=== PATIENT | male | born 1980 | race Caucasian/White ===

== ENCOUNTER 2016-09-05 11:28 | Emergency (ER) | payer BC, OTHER ==
[2016-09-05 11:32] VITALS: RESP 16
--- NOTE | 2016-09-05 12:22 | ED ---
General Adult HPI - General Chief complaint: Recheck/Abnormal Lab/Rx Stated complaint: HAIR LOSS Time Seen by Provider: 09/05/16 12:07 Source: patient Mode of arrival: ambulatory Limitations: no limitations - History of Present Illness Initial comments: This 36-year-old white male presents with a complaint of hair loss. He states that patches of his hair seemed to be falling out. This started 2 days ago. Seems to only be on the left side of his scalp. He denies any previous similar incidents. He denies any exposure to chemicals. He denies any changes in his lifestyle otherwise. No other complaints or modifying factors. There is no pain associated with this. - Related Data Previous Rx's Medication Instructions Recorded Triamcinolone 0.5% Cream [Kenalog 1 applic TOPICAL BID #30 gm 09/05/16 0.5% Cream] Allergies Allergy/AdvReac Type Severity Reaction Status Date / Time No Known Allergies Allergy Verified 09/05/16 11:41 Review of Systems ROS Statement: Those systems with pertinent positive or pertinent negative responses have been documented in the HPI. ROS Other: All systems not noted in ROS Statement are negative. Past Medical History Additional Past Medical History / Comment(s): chronic abd and back pain-unknown diagnosis, elevated lipase History of Any Multi-Drug Resistant Organisms: None Reported Past Surgical History: Orthopedic Surgery Past Psychological History: No Psychological Hx Reported Smoking Status: Current every day smoker Past Alcohol Use History: None Reported Past Drug Use History: Marijuana General Exam Limitations: no limitations General appearance: alert, in no apparent distress Head exam: Present: atraumatic, normocephalic, other (There are several patches of hair loss noted on the left scalp. There is no associated scaling erythema or rash.) Psychiatric exam: Present: normal affect, normal mood Skin exam: Present: intact. Absent: rash Course Vital Signs 09/05/16 11:30 Temperature 98.2 F Pulse Rate 59 L Respiratory 16 Rate Blood Pressure 136/81 O2 Sat by Pulse 99 Oximetry Medical Decision Making - Medical Decision Making The patient was seen and examined. It appears that he has alopecia. It is felt as though he would primarily benefit from following up with a airplane technician. We will attempt some topical corticosteroids. He also may benefit from some minoxidil. It is felt as though he stable for discharge and leaves in no distress. Disposition Clinical Impression: Alopecia areata Disposition: HOME SELF-CARE Condition: Good Additional Instructions: We saw you for alopecia areata. Please use the topical triamcinolone cream as prescribed. He also may benefit from using some minoxidil and following up with a airplane technician. Prescriptions: Triamcinolone 0.5% Cream [Kenalog 0.5% Cream] 1 applic TOPICAL BID #30 gm Referrals: Oralia Moyer MD [Primary Care Provider] - 1-2 days Karl Alejo MD [STAFF PHYSICIAN] - 1-2 days Time of Disposition: 12:20
[2016-09-05 12:50] VITALS: BP 133/93; PULSE 72; TEMP 97.1
== END 2016-09-05 12:53 | disposition home or self-care (01) ==
LOC: EC 11:28
DX: L63.9 Alopecia areata, unspecified (principal); F17.200 Nicotine dependence, unspecified, uncomplicated
CPT/HCPCS: 99282

== ENCOUNTER 2020-02-06 16:17 | Observation (INO) | payer OTHER ==
[2020-02-06] MEDS ORDERED: MORPHINE SULFATE 4 MG/ML SYRINGE IV STA (16:43)
[2020-02-06] MEDS ORDERED: SODIUM CHLORIDE 0.9% 1,000 ML IV STA ×2 (16:43)
[2020-02-06] MEDS ORDERED: PANTOPRAZOLE 40 MG/10 ML VIAL IVP STA (16:43)
[2020-02-06] MEDS ORDERED: ONDANSETRON 4 MG/2 ML VIAL IVP STA (16:43)
--- NOTE | 2020-02-06 17:12 | ED ---
Abdominal Pain HPI - General Chief Complaint: Abdominal Pain Stated Complaint: pancreatitis Time Seen by Provider: 02/06/20 16:27 Source: patient, RN notes reviewed, old records reviewed Mode of arrival: ambulatory Limitations: no limitations - History of Present Illness Initial Comments: is a 39-year-old male who presents emergency department today for evaluation for complaints of upper abdominal pain. He reports the abdominal pains more severe for the past 3 days. He states he's been diagnosed with pancreatitis many years ago and states that he seems to manage flareups at home by drink plenty fluids and healthy diet. Patient states that he has not sought medical treatment for the similar symptoms for years. Patient states the pain is in the left upper quadrant radiating towards his back. He denies alcohol use. He reports that he has followed with the [facility] when he was first diagnosed with chronic pancreatitis. Patient states that he has been having some diarrhea, nausea vomiting. He reports that he was having a bowel movement with diarrhea he also had an episode of near syncope. Denies chest pain, shortness of breath. - Related Data Previous Rx's Medication Instructions Recorded Triamcinolone 0.5% Cream [Kenalog 1 applic TOPICAL BID #30 gm 09/05/16 0.5% Cream] Allergies Allergy/AdvReac Type Severity Reaction Status Date / Time No Known Allergies Allergy Verified 02/06/20 16:25 Review of Systems ROS Statement: Those systems with pertinent positive or pertinent negative responses have been documented in the HPI. ROS Other: All systems not noted in ROS Statement are negative. Past Medical History Past Medical History: No Reported History Additional Past Medical History / Comment(s): chronic abd and back pain-unknown diagnosis, elevated lipase History of Any Multi-Drug Resistant Organisms: None Reported Past Surgical History: Orthopedic Surgery Past Psychological History: No Psychological Hx Reported Smoking Status: Never smoker Past Alcohol Use History: None Reported Past Drug Use History: Marijuana General Exam - General Exam Comments Initial Comments: Alert and oriented 39-year-old male. No significant distress. Limitations: no limitations General appearance: alert, in no apparent distress Head exam: Present: atraumatic, normocephalic, normal inspection Eye exam: Present: normal appearance, PERRL, EOMI. Absent: scleral icterus, conjunctival injection, periorbital swelling ENT exam: Present: normal exam, mucous membranes moist Neck exam: Present: normal inspection. Absent: tenderness, meningismus, lymphadenopathy Respiratory exam: Present: normal lung sounds bilaterally. Absent: respiratory distress, wheezes, rales, rhonchi, stridor Cardiovascular Exam: Present: regular rate, normal rhythm, normal heart sounds. Absent: systolic murmur, diastolic murmur, rubs, gallop, clicks GI/Abdominal exam: Present: soft, tenderness (Left lower left upper quadrant tenderness), normal bowel sounds. Absent: distended, guarding, rebound, rigid Extremities exam: Present: normal inspection, full ROM, normal capillary refill. Absent: tenderness, pedal edema, joint swelling, calf tenderness Back exam: Present: normal inspection Neurological exam: Present: alert, oriented X3, CN II-XII intact Psychiatric exam: Present: normal affect, normal mood Skin exam: Present: warm, dry, intact, normal color. Absent: rash Course Vital Signs 02/06/20 16:21 Temperature 99.0 F Pulse Rate 83 Respiratory 18 Rate Blood Pressure 109/76 O2 Sat by Pulse 98 Oximetry Medical Decision Making - Medical Decision Making 39-year-old male with history of chronic pancreatitis presents with 3 days of flareup of nausea and vomiting and upper abdominal pain. He reports he typical ly manages his pains at home but it was more severe today. Patient states that he also had some near-syncopal episodes due to the pain. At this time patient's labs show evidence of elevated lipase at 1200. This is the highest Patient reports that his his ever been. He denies any alcohol use. Patient will ultrasound of the right upper quadrant gallbladder at this time. I discussed admission for IV hydration and pain management for the Patient and he is agreeable to this. Dr. Rivera disucssed with LIZ Quigley. - Lab Data Result diagrams: 02/06/20 16:44 02/06/20 16:44 Lab Results 02/06/20 02/06/20 02/06/20 Range/Units 16:44 16:44 16:44 WBC 10.0 (3.8-10.6) k/uL RBC 5.59 (4.30-5.90) m/uL Hgb 16.2 (13.0-17.5) gm/dL Hct 47.4 (39.0-53.0) % MCV 84.7 (80.0-100.0) fL MCH 29.0 (25.0-35.0) pg MCHC 34.2 (31.0-37.0) g/dL RDW 12.2 (11.5-15.5) % Plt Count 430 (150-450) k/uL Neutrophils % 81 % Lymphocytes % 13 % Monocytes % 4 % Eosinophils % 1 % Basophils % 1 % Neutrophils # 8.1 H (1.3-7.7) k/uL Lymphocytes # 1.4 (1.0-4.8) k/uL Monocytes # 0.4 (0-1.0) k/uL Eosinophils # 0.1 (0-0.7) k/uL Basophils # 0.1 (0-0.2) k/uL PT 10.5 (9.0-12.0) sec INR 1.0 (<1.2) APTT 24.2 (22.0-30.0) sec Sodium (137-145) mmol/L Potassium (3.5-5.1) mmol/L Chloride (98-107) mmol/L Carbon Dioxide (22-30) mmol/L Anion Gap mmol/L BUN (9-20) mg/dL Creatinine (0.66-1.25) mg/dL Est GFR (CKD-EPI)AfAm (>60 ml/min/1.73 sqM) Est GFR (CKD-EPI)NonAf (>60 ml/min/1.73 sqM) Glucose (74-99) mg/dL Calcium (8.4-10.2) mg/dL Total Bilirubin (0.2-1.3) mg/dL AST (17-59) U/L ALT (4-49) U/L Alkaline Phosphatase (38-126) U/L Total Protein (6.3-8.2) g/dL Albumin (3.5-5.0) g/dL Amylase (30-110) U/L Lipase (23-300) U/L Urine Color Colorless Urine Appearance Clear (Clear) Urine pH 7.0 (5.0-8.0) Ur Specific [place] 1.003 (1.001-1.035) Urine Protein Negative (Negative) Urine Glucose (UA) Negative (Negative) Urine Ketones Negative (Negative) Urine Blood Negative (Negative) Urine Nitrite Negative (Negative) Urine Bilirubin Negative (Negative) Urine Urobilinogen <2.0 (<2.0) mg/dL Ur Leukocyte Esterase Negative (Negative) 02/06/20 Range/Units 16:44 WBC (3.8-10.6) k/uL RBC (4.30-5.90) m/uL Hgb (13.0-17.5) gm/dL Hct (39.0-53.0) % MCV (80.0-100.0) fL MCH (25.0-35.0) pg MCHC (31.0-37.0) g/dL RDW (11.5-15.5) % Plt Count (150-450) k/uL Neutrophils % % Lymphocytes % % Monocytes % % Eosinophils % % Basophils % % Neutrophils # (1.3-7.7) k/uL Lymphocytes # (1.0-4.8) k/uL Monocytes # (0-1.0) k/uL Eosinophils # (0-0.7) k/uL Basophils # (0-0.2) k/uL PT (9.0-12.0) sec INR (<1.2) APTT (22.0-30.0) sec Sodium 136 L (137-145) mmol/L Potassium 4.3 (3.5-5.1) mmol/L Chloride 106 (98-107) mmol/L Carbon Dioxide 21 L (22-30) mmol/L Anion Gap 9 mmol/L BUN 12 (9-20) mg/dL Creatinine 1.07 (0.66-1.25) mg/dL Est GFR (CKD-EPI)AfAm >90 (>60 ml/min/1.73 sqM) Est GFR (CKD-EPI)NonAf 87 (>60 ml/min/1.73 sqM) Glucose 95 (74-99) mg/dL Calcium 9.7 (8.4-10.2) mg/dL Total Bilirubin 0.7 (0.2-1.3) mg/dL AST 26 (17-59) U/L ALT 21 (4-49) U/L Alkaline Phosphatase 49 (38-126) U/L Total Protein 7.4 (6.3-8.2) g/dL Albumin 4.7 (3.5-5.0) g/dL Amylase 248 H (30-110) U/L Lipase 1205 H (23-300) U/L Urine Color Urine Appearance (Clear) Urine pH (5.0-8.0) Ur Specific [place] (1.001-1.035) Urine Protein (Negative) Urine Glucose (UA) (Negative) Urine Ketones (Negative) Urine Blood (Negative) Urine Nitrite (Negative) Urine Bilirubin (Negative) Urine Urobilinogen (<2.0) mg/dL Ur Leukocyte Esterase (Negative) 02/06/20 17:11 EKG shows sinus bradycardia, septal infarct. Abnormal EKG. Ventricular rate of 57 bpm. Verbal 138 ms. QS duration is 84 ms. QT QTc is 398/487 ms. Disposition Clinical Impression: Pancreatitis Disposition: ADMITTED IP TO THIS HOSP Condition: Stable Is patient prescribed a controlled substance at d/c from ED?: No Referrals: Oralia Moyer MD [Primary Care Provider] - 1-2 days Time of Disposition: 17:59
[2020-02-06 17:21] LABS: Basophils # (A) 0.1 k/uL (0-0.2); Basophils % (A) 1 %; Eosinophils # (A) 0.1 k/uL (0-0.7); Eosinophils % (A) 1 %; HCT 47.4 % (39.0-53.0); HGB 16.2 gm/dL (13.0-17.5); Lymphocytes # (A) 1.4 k/uL (1.0-4.8); Lymphocytes % (A) 13 %; MCHC 34.2 g/dL (31.0-37.0); MCV 84.7 fL (80.0-100.0); Mean Platelet Volume 6.4; Monocytes # (A) 0.4 k/uL (0-1.0); Monocytes % (A) 4 %; Neutrophils # (A) 8.1 k/uL (1.3-7.7); Neutrophils % (A) 81 %; Platelet Count 430 k/uL (150-450); RBC 5.59 m/uL (4.30-5.90); RDW 12.2 % (11.5-15.5)
[2020-02-06 17:25] LABS: Appearance,Urine Clear (Clear); Bilirubin,Urine Negative (Negative); Blood,Urine Negative (Negative); Color,Urine Colorless; Glucose,Urine (UA) Negative (Negative); Ketones,Urine Negative (Negative); Leukocyte Esterase,Urine Negative (Negative); Nitrite,Urine Negative (Negative); Protein,Urine Negative (Negative); Specific Gravity,Urine 1.003 (1.001-1.035); Urobilinogen,Urine <2.0 mg/dL (<2.0)
[2020-02-06 17:31] LABS: ALT 21 U/L (4-49); AST 26 U/L (17-59); African American GFR (CKD) >90 (>60 ml/min/1.73 sqM); Albumin 4.7 g/dL (3.5-5.0); Alkaline Phosphatase 49 U/L (38-126); Amylase 248 U/L (30-110); Anion Gap 9 mmol/L; Blood Urea Nitrogen 12 mg/dL (9-20); Calcium 9.7 mg/dL (8.4-10.2); Carbon Dioxide 21 mmol/L (22-30); Chloride 106 mmol/L (98-107); Glucose 95 mg/dL (74-99); Lipase 1205 U/L (23-300); Non-African American GFR(CKD) 87 (>60 ml/min/1.73 sqM); Potassium 4.3 mmol/L (3.5-5.1); Sodium 136 mmol/L (137-145); Total Bilirubin 0.7 mg/dL (0.2-1.3); Total Protein 7.4 g/dL (6.3-8.2)
[2020-02-06 17:38] LABS: Partial Thromboplastin Time 24.2 sec (22.0-30.0); Prothrombin Time 10.5 sec (9.0-12.0)
[2020-02-06] MEDS ORDERED: MORPHINE SULFATE 4 MG/ML SYRINGE IV PRN (17:59)
[2020-02-06] MEDS ORDERED: IBUPROFEN 400 MG TAB PO PRN (17:59)
[2020-02-06] MEDS ORDERED: ACETAMINOPHEN TAB 325 MG TAB PO PRN (17:59)
[2020-02-06] MEDS ORDERED: NALOXONE 0.4 MG/ML 1 ML VIAL IV PRN (17:59)
--- NOTE | 2020-02-06 19:23 | US ---
EXAMINATION TYPE: US gallbladder DATE OF EXAM: 02/06/2020 COMPARISON: US CLINICAL HISTORY: pancreatitis. Pancreatitis. EXAM MEASUREMENTS: Liver Length: 14.8 cm Gallbladder Wall: 0.27 cm CBD: 0.24 cm Right Kidney: 10.6 x 5.1 x 4.2 cm Limited due to gas. Pancreas: Obscured by overlying bowel gas. Liver: Complex, mostly anechoic area seen in the anterior right lobe of the liver measurin.0 x 2 .0 x 2.0 cm. Gallbladder: Very minimal amount of internal echoes seen versus artifact. Evidence for sonographic Ward's sign: No CBD: Appears wnl Right Kidney: Hyperechoic focus seen with posterior shadowing and twinkle artifact measurin.7 x 0.9 x 0.5 cm. IMPRESSION: 1. No acute sonographic process. 2. 7 mm mean diameter nonobstructing right renal calcification.
[2020-02-06] MEDS: SODIUM CHLORIDE 0.9% 1,000 ML IV SCH (21:15)
[2020-02-07] MEDS: KETOROLAC 15 MG/ML 1 ML VIAL IVP PRN ×2 (01:13→08:39)
[2020-02-07] MEDS ORDERED: PANTOPRAZOLE 40 MG/10 ML VIAL IV SCH (09:00)
[2020-02-07] MEDS: SODIUM CHLORIDE 0.9% 1,000 ML IV SCH ×2 (10:07→15:41)
[2020-02-07 10:15] VITALS: BP 122/81; PULSE 59; RESP 17; TEMP 97.8
--- NOTE | 2020-02-07 16:50 | P.HPIM ---
History of Present Illness patient is a very pleasant 39-year-old male with the previous history of pericarditis came in with similar pain in the epigastric area in the right flank area as well.Patient's pain is crampy in nature as well as sharp in nature sign ificantly improved now. Moderate to severe in severity. Patient is found to have elevated lipase because of which patient was believed to have pancreatitis and was subsequently admitted. Patient denied any fever chills was having some nausea patient is found to have 7 mm nonobstructing right renal calculi and a lipase is 1200 patient denied any alcohol abuse there are no gallstones. Review of Systems REVIEW OF SYSTEMS: CONSTITUTIONAL: No fever, no malaise, no fatigue. HEENT: No recent visual problems or hearing problems. Denied any sore throat. CARDIOVASCULAR: No chest pain, orthopnea, PND, no palpitations, no syncope. PULMONARY: No shortness of breath, no cough, no hemoptysis. GASTROINTESTINAL: as mentioned in HPI NEUROLOGICAL: No headaches, no weakness, no numbness. HEMATOLOGICAL: Denies any bleeding or petechiae. GENITOURINARY: Denies any burning micturition, frequency, or urgency. MUSCULOSKELETAL/RHEUMATOLOGICAL: Denies any joint pain, swelling, or any muscle pain. ENDOCRINE: Denies any polyuria or polydipsia. The rest of the 14-point review of systems is negative. Past Medical History Past Medical History: No Reported History Additional Past Medical History / Comment(s): chronic abd and back pain-unknown diagnosis, elevated lipase, chronic pancreatitis History of Any Multi-Drug Resistant Organisms: None Reported Past Surgical History: Orthopedic Surgery Additional Past Surgical History / Comment(s): left wrist surgery Past Psychological History: No Psychological Hx Reported Smoking Status: Former smoker Past Alcohol Use History: None Reported Past Drug Use History: Marijuana - Past Family History Mother History Unknown: Yes Father History Unknown: Yes Medications and Allergies Home Medications Medication Instructions Recorded Confirmed Type No Known Home Medications 02/06/20 02/06/20 History Allergies Allergy/AdvReac Type Severity Reaction Status Date / Time No Known Allergies Allergy Verified 02/06/20 18:34 Physical Exam Vitals: Vital Signs Temp Pulse Pulse Resp BP BP Pulse Ox 02/07/20 10:14 97.8 F 59 L 17 122/81 97 02/07/20 09:08 98.6 F 69 18 136/83 99 10/23/20 06:00 64 18 133/88 98 02/06/20 21:17 81 19 127/94 99 Intake and Output 02/07/20 02/07/20 02/07/20 06:59 14:59 22:59 Other: # Voids 3 PHYSICAL EXAMINATION: GENERAL: The patient is alert and oriented x3, not in any acute distress. Well developed, well nourished. HEENT: Pupils are round and equally reacting to light. EOMI. No scleral icterus. No conjunctival pallor. Normocephalic, atraumatic. No pharyngeal erythema. No thyromegaly. CARDIOVASCULAR: S1 and S2 present. No murmurs, rubs, or gallops. PULMONARY: Chest is clear to auscultation, no wheezing or crackles. ABDOMEN: Soft, nontender, nondistended, normoactive bowel sounds. No palpable organomegaly. MUSCULOSKELETAL: No joint swelling or deformity. EXTREMITIES: No cyanosis, clubbing, or pedal edema. NEUROLOGICAL: Gross neurological examination did not reveal any focal deficits. SKIN: No rashes. Results CBC & Chem 7: 02/06/20 16:44 02/06/20 16:44 Labs: Abnormal Lab Results - Last 24 Hours (Table) 02/06/20 02/06/20 Range/Units 16:44 16:44 Neutrophils # 8.1 H (1.3-7.7) k/uL Sodium 136 L (137-145) mmol/L Carbon Dioxide 21 L (22-30) mmol/L Amylase 248 H (30-110) U/L Lipase 1205 H (23-300) U/L Thrombosis Risk Factor Assmnt - Choose All That Apply Any of the Below Risk Factors Present?: Yes Other Risk Factors: No Other congenital or acquired thrombophilia - If yes, enter type in comment: No Assessment and Plan Plan: -abdominal pain: Most probably secondary to nephrolithiasis although cannot completely exclude pancreatitis possibility of pancreatitis low clinically. Patient will be started on diet and will advance it continue with nonsteroidal anti-inflammatory medications patient wanted to go home later today if patient's is able to tolerate diet, patient will be discharged today. -mild hyponatremia hypervolemic hyponatremia expected to improve with IV fluids -as mentioned above although possibility is low at cannot completely rule out pancreatitis
--- NOTE | 2020-02-07 16:53 | P.DS ---
Providers Date of admission: 02/06/20 20:21 Attending physician: Luís Wills Primary care physician: Oralia Moyer [facility] Course: patient is clinically doing well if he is able to tolerate soft diet for supper patient will be discharged today. Patient Condition at Discharge: Stable Plan - Discharge Summary Discharge Rx Participant: No New Discharge Prescriptions: No Action No Known Home Medications Discharge Medication List No Known Home Medications 02/06/20 [History] Follow up Appointment(s)/Referral(s): Oralia Moyer MD [Primary Care Provider] - 3 Days Discharge Disposition: HOME SELF-CARE
== END 2020-02-07 19:24 | disposition home or self-care (01) ==
LOC: EC 16:17 → INTOOBSV 20:21 → 6NMEDSUR 20:21 → UNDODISIN 02-07 19:24
PROVIDERS: ADMIT Hospitalist; ATTEND Hospitalist
DX: N20.0 Calculus of kidney (principal); K85.90 Acute pancreatitis without necrosis or infection, unspecified; Z87.891 Personal history of nicotine dependence; E87.1 Hypo-osmolality and hyponatremia; E86.1 Hypovolemia; K86.1 Other chronic pancreatitis; E87.70 Fluid overload, unspecified; Z86.19 Personal history of other infectious and parasitic diseases
CPT/HCPCS: 96376; 96361 ×2; 96374; 96375 ×2; 99285; 36415; 93005; 80053; 82150; 83690; 85025; 85610; 85730; 81003; 76705; G0378 ×2; J2270; J2405; J1885; C9113 ×2

== ENCOUNTER 2020-05-31 18:36 | Emergency (ER) | payer OTHER ==
[2020-05-31 18:43] VITALS: BP 105/73; PULSE 60; RESP 16; TEMP 97.9
[2020-05-31] MEDS ORDERED: TOPICAL SKIN ADHESIVE 1 EACH AMP TOPICAL STA (19:11)
--- NOTE | 2020-05-31 20:07 | ED ---
General Adult HPI - General Source: patient, RN notes reviewed Mode of arrival: ambulatory Limitations: no limitations <Linden Guadarrama - Last Filed: 05/31/20 20:09> <Yamilet Arzola - Last Filed: 06/01/20 16:42> - General Chief complaint: Wound/Laceration Stated complaint: cut l index finger Time Seen by Provider: 05/31/20 18:53 - History of Present Illness Initial comments: 39-year-old male presents to the emergency room for chief, and of laceration. Patient was using a knife while cooking today and cut the finger pad of his left first digit. Patient states he thought it would need to be glued. Patient states the knife was clean and he does not believe there are any possible foreign bodies. According to the patient he is up-to-date on tetanus within the past 5 years.Patient has no other complaints at this time including shortness of breath, chest pain, abdominal pain, nausea or vomiting, headache, or visual changes. (Linden Guadarrama) - Related Data Home Medications Medication Instructions Recorded Confirmed No Known Home Medications 02/06/20 02/06/20 Allergies Allergy/AdvReac Type Severity Reaction Status Date / Time No Known Allergies Allergy Verified 05/31/20 18:43 Review of Systems ROS Other: All systems not noted in ROS Statement are negative. <Linden Guadarrama - Last Filed: 05/31/20 20:09> ROS Other: All systems not noted in ROS Statement are negative. <Yamilet Arzola - Last Filed: 06/01/20 16:42> ROS Statement: Those systems with pertinent positive or pertinent negative responses have been documented in the HPI. Past Medical History Past Medical History: No Reported History Additional Past Medical History / Comment(s): chronic abd and back pain-unknown diagnosis, elevated lipase, chronic pancreatitis History of Any Multi-Drug Resistant Organisms: None Reported Past Surgical History: Orthopedic Surgery Additional Past Surgical History / Comment(s): left wrist surgery Past Psychological History: No Psychological Hx Reported Smoking Status: Former smoker Past Alcohol Use History: None Reported Past Drug Use History: Marijuana - Past Family History Mother History Unknown: Yes Father History Unknown: Yes <Linden Guadarrama - Last Filed: 05/31/20 20:09> General Exam Limitations: no limitations General appearance: alert, in no apparent distress Head exam: Present: atraumatic Eye exam: Present: normal appearance, PERRL, EOMI. Absent: scleral icterus, conjunctival injection ENT exam: Present: normal exam, mucous membranes moist Neck exam: Present: normal inspection, full ROM. Absent: tenderness Respiratory exam: Present: normal lung sounds bilaterally. Absent: respiratory distress, wheezes Cardiovascular Exam: Present: regular rate, normal rhythm, normal heart sounds GI/Abdominal exam: Present: soft. Absent: distended, tenderness Extremities exam: Present: full ROM (Full range of motion of the left second digit including extension and flexion of the DIP joint.), normal capillary refill (Capillary refill less than 2 seconds in the left second digit, radial pulse 2+.), other (Patient has a 1 cm superficial laceration noted to the left Second digit finger pad. Bleeding controlled.) <Linden Guadarrama - Last Filed: 05/31/20 20:09> Course Vital Signs 05/31/20 18:40 Temperature 97.9 F Pulse Rate 60 Respiratory 16 Rate Blood Pressure 105/73 O2 Sat by Pulse 98 Oximetry Procedures - Laceration Laceration #1 Consent Obtained: verbal consent Indication: laceration Site: hand Size (cm): 1 Description: linear Depth: simple, single layer Pre-repair: wound explored, irrigated extensively, deep structures intact Type of Sutures: other (exofin) Patient Tolerated Procedure: well, no complications <Linden Guadarrama - Last Filed: 05/31/20 20:09> Medical Decision Making <Linden Guadarrama - Last Filed: 05/31/20 20:09> <Yamilet Arzola - Last Filed: 06/01/20 16:42> - Medical Decision Making Wound was cleaned thoroughly with Sterile water and Betadine. Bleeding is controlled. I did recommend x-ray to rule out any foreign body however patient states there is absolutely no way there is a foreign body and does not want this performed. I did offer glue versus sutures. Patient strongly prefers glue. I did discuss the risks including opening of the wound but he would prefer to go with glue. This was glued with Exofin. I discussed return parameters including ulcer infection. He is up-to-date on tetanus. He will return for any worsening symptoms. (Linden Guadarrama) I was available for consultation in the emergency department. The history and physical exam were done by the midlevel provider. I was consulted for this patients care. I reviewed the case with the midlevel provider and based on their presentation of the patient, I agree with the assessment, medical decision making and plan of care as documented. Chart was dictated using [employer] dictation software. Attempts were made to correct any dictation errors however some typographical errors may persist. Patient was seen during a national state of emergency due to the Covid-19 pandemic. (Yamilet Arzola) Disposition Is patient prescribed a controlled substance at d/c from ED?: No Time of Disposition: 20:05 <Linden Guadarrama - Last Filed: 05/31/20 20:09> <Yamilet Arzola - Last Filed: 06/01/20 16:42> Clinical Impression: Laceration Disposition: HOME SELF-CARE Condition: Good Instructions (If sedation given, give patient instructions): Laceration (ED), Skin Adhesive Care (ED) Additional Instructions: Please try to keep wound as dry and clean as possible. Monitor for signs of infection. Please follow-up with your doctor in one to 2 days. Return to the emergency room for any worsening symptoms.Skin glue should come off on its own. Referrals: Suman Buchanan MD [Primary Care Provider] - 1-2 days
== END 2020-05-31 20:09 | disposition home or self-care (01) ==
LOC: EC 18:36
DX: S61.211A Laceration without foreign body of left index finger without damage to nail, initial encounter (principal); Z87.891 Personal history of nicotine dependence; W26.0XXA Contact with knife, initial encounter; Y93.G3 Activity, cooking and baking
CPT/HCPCS: 12001; 99282

== ENCOUNTER 2021-01-02 11:39 | Emergency (ER) | payer OTHER ==
[2021-01-02 11:58] VITALS: BP 113/74; PULSE 56; RESP 20; TEMP 98.3
[2021-01-02] MEDS ORDERED: TOPICAL SKIN ADHESIVE 1 EACH AMP TOPICAL ONE (13:20)
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
== END 2021-01-02 14:06 | disposition home or self-care (01) ==
LOC: EC 11:39
DX: S81.811A Laceration without foreign body, right lower leg, initial encounter (principal); F17.200 Nicotine dependence, unspecified, uncomplicated; W27.8XXA Contact with other nonpowered hand tool, initial encounter; Y93.89 Activity, other specified; Y92.89 Other specified places as the place of occurrence of the external cause
CPT/HCPCS: 12001; 99282

== ENCOUNTER 2021-01-27 16:23 | Emergency (ER) | payer OTHER ==
--- NOTE | 2021-01-27 19:08 | XR ---
EXAMINATION TYPE: XR forearm RT DATE OF EXAM: 01/27/2021 COMPARISON: NONE HISTORY: Pain TECHNIQUE: 2 views FINDINGS: There is impacted transverse fracture distal radial metaphysis. This is 1 cm from the wrist joint. There is nondisplaced fracture ulnar styloid process. There is no dislocation. Carpal bones a re intact. Elbow joint appears intact. IMPRESSION: Fractures of the distal radius and ulna with overall no significant displacement. Radial fracture is impacted.
--- NOTE | 2021-01-27 19:11 | XR ---
EXAMINATION TYPE: XR wrist limited RT DATE OF EXAM: 01/27/2021 COMPARISON: NONE HISTORY: Pain. Fall TECHNIQUE: 2 views FINDINGS: There is impacted comminuted transverse fracture distal radial metaphysis. There is no sign ificant displacement. Fracture is 12 mm from the wrist joint. There is nondisplaced fracture of the u lnar styloid process. The carpal bones are intact. Scaphoid appears normal. IMPRESSION: Fractures of the distal radius and ulna as above. No dislocation.
--- NOTE | 2021-01-27 19:12 | XR ---
EXAMINATION TYPE: XR shoulder complete RT DATE OF EXAM: 01/27/2021 COMPARISON: NONE HISTORY: Pain TECHNIQUE: 3 views FINDINGS: I see no fracture nor dislocation. Joint spaces are normal. There are no pathologic calcifi cations. IMPRESSION: Negative right shoulder exam. No fracture.
[2021-01-27] MEDS ORDERED: MORPHINE SULFATE 4 MG/ML SYRINGE IM STA ×2 (20:06→21:46)
[2021-01-27] MEDS ORDERED: ONDANSETRON ODT 4 MG TAB PO STA (20:06)
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
--- NOTE | 2021-01-27 20:45 | XR ---
EXAMINATION TYPE: XR ribs RT w pa chest xray DATE OF EXAM: 01/27/2021 COMPARISON: NONE HISTORY: Pain TECHNIQUE: 5 views FINDINGS: Heart and mediastinum are normal. Lungs are clear of infiltrate. There is no pleural effusi on or pneumothorax. The right ribs appear intact. There is old left healed fracture of the clavicle. IMPRESSION: No active cardiopulmonary disease. Normal right ribs.
[2021-01-27] MEDS ORDERED: LIDOCAINE 1% INJ 10MG/ML (20 ML MDV) SQ ONE (20:59)
[2021-01-27] MEDS ORDERED: BUPIVACAINE (PF) 0.5% 30 ML VIAL SQ STA (20:59)
[2021-01-27] MEDS ORDERED: ACET/COD 300 MG/30 MG STARTER PACK 6 TAB BTL PO STA (21:01)
[2021-01-27] MEDS ORDERED: ONDANSETRON 4 MG ODT STARTER PACK 2 TAB BTL PO STA (22:35)
--- NOTE | 2021-01-27 22:59 | XR ---
EXAMINATION TYPE: XR wrist limited RT DATE OF EXAM: 01/27/2021 COMPARISON: Today HISTORY: Post reduction TECHNIQUE: 2 views FINDINGS: There is transverse fracture distal radial metaphysis. There is nondisplaced fracture ulnar styloid process. Fragments appear in fairly good position. There is no significant displacement. IMPRESSION: There is improvement in the radius fracture position compared to initial exam. No complic ating process seen.
[2021-01-27 23:10] VITALS: BP 132/78; PULSE 79; RESP 19; TEMP 98
[2021-01-27] MEDS ORDERED: LIDOCAINE 5% PATCH TOPICAL SCH (23:15)
== END 2021-01-27 23:16 | disposition home or self-care (01) ==
LOC: EC 16:23
DX: S52.591A Other fractures of lower end of right radius, initial encounter for closed fracture (principal); S52.611A Displaced fracture of right ulna styloid process, initial encounter for closed fracture; M25.511 Pain in right shoulder; R07.81 Pleurodynia; F17.200 Nicotine dependence, unspecified, uncomplicated; V17.4XXA Pedal cycle driver injured in collision with fixed or stationary object in traffic accident, initial encounter; Y93.55 Activity, bike riding; Y92.89 Other specified places as the place of occurrence of the external cause
CPT/HCPCS: 71101; 73030; 73090; 73100; 99284; 25605; 96372; J2270; J2001; S0119

== ENCOUNTER 2021-02-03 08:30 | Day surgery (SDC) | payer OTHER ==
[2021-02-01 11:40] VITALS: BMI 19.6
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
[~2021-02-03 08:30] MED LIST: HYDROmorphone 0.5 MG/0.5 ML SYRINGE IVP PRN; LACTATED RINGERS 1,000 ML IV SCH; LIDOCAINE 1% (10MG/ML) FOR IV START INTRADERMA PRN
[2021-02-03] MEDS ORDERED: ONDANSETRON 4 MG/2 ML VIAL ONE (09:25)
[2021-02-03] MEDS ORDERED: ONDANSETRON 4 MG/2 ML VIAL IVP ONE (09:29)
[2021-02-03] MEDS ORDERED: DEXAMETHASONE SOD PHOSPHATE 4 MG/ML 1 ML VIAL IVP ONE (09:30)
[2021-02-03] MEDS ORDERED: fentaNYL (PF) 50 MCG/ML 2 ML AMP IVP ONE (09:41)
[2021-02-03] MEDS ORDERED: MIDAZOLAM 2 MG/2 ML VIAL IVP ONE (09:41)
[2021-02-03 09:49] LABS: ALT 30 U/L (4-49); AST 30 U/L (17-59); African American GFR (CKD) >90 (>60 ml/min/1.73 sqM); Albumin 4.9 g/dL (3.5-5.0); Alkaline Phosphatase 55 U/L (38-126); Anion Gap 12 mmol/L; Blood Urea Nitrogen 22 mg/dL (9-20); Carbon Dioxide 23 mmol/L (22-30); Chloride 105 mmol/L (98-107); Glucose 105 mg/dL (74-99); Non-African American GFR(CKD) >90 (>60 ml/min/1.73 sqM); Potassium 4.5 mmol/L (3.5-5.1); Sodium 140 mmol/L (137-145); Total Bilirubin 0.9 mg/dL (0.2-1.3)
[2021-02-03] MEDS ORDERED: PHENYLEPHRINE-0.9% NACL SYG 1,000 MCG/10 ML SYRINGE ONE (09:50)
[2021-02-03] MEDS ORDERED: PROPOFOL 10 MG/ML 20 ML VIAL IV ONE (09:50)
[2021-02-03] MEDS ORDERED: SODIUM CHLORIDE 0.9% (PF) 10 ML VIAL ONE (09:50)
[2021-02-03] MEDS ORDERED: MIDAZOLAM 2 MG/2 ML VIAL ONE (09:50)
[2021-02-03] MEDS ORDERED: ROPIVACAINE 5 MG/ML 30 ML VIAL ONE (09:50)
[2021-02-03] MEDS ORDERED: LIDOCAINE 1% INJ 10MG/ML (20 ML MDV) ONE (09:50)
[2021-02-03] MEDS ORDERED: fentaNYL (PF) 50 MCG/ML 2 ML AMP ONE (09:50)
[2021-02-03 09:59] LABS: Basophils # (A) 0.1 k/uL (0-0.2); Basophils % (A) 1 %; Eosinophils # (A) 0.1 k/uL (0-0.7); Eosinophils % (A) 1 %; HCT 47.3 % (39.0-53.0); HGB 16.5 gm/dL (13.0-17.5); Lymphocytes # (A) 1.5 k/uL (1.0-4.8); Lymphocytes % (A) 19 %; MCH 29.5 pg (25.0-35.0); MCHC 34.8 g/dL (31.0-37.0); MCV 84.9 fL (80.0-100.0); Mean Platelet Volume 7.1; Monocytes # (A) 0.4 k/uL (0-1.0); Monocytes % (A) 4 %; Neutrophils % (A) 74 %; Platelet Count 434 k/uL (150-450); RBC 5.57 m/uL (4.30-5.90); RDW 12.2 % (11.5-15.5)
[2021-02-03] MEDS ORDERED: SODIUM CHLORIDE 0.9% 100 ML with ceFAZolin 2,000 MG IV ONE ×2 (10:04)
--- NOTE | 2021-02-03 10:36 | P.ANPRN ---
Procedure Note - Anesthesia - Nerve Block Performed Right Axillary Single Time Out Performed: Yes ([id number]) Date of Procedure: 02/03/21 Procedure Start Time: 09:42 Procedure Stop Time: 09:47 Location of Patient: PreOp Indication: Acute Post-Operative Pain, Requested by Surgeon Specifically requested for management of pain by DrJay Jay: Damian Reis Sedation Type: Sedate with meaningful contact maintained Preparation: Sterile Prep Position: Supine Catheter: None Needle Types: Pajunk Needle Gauge: 21, Other (see comment) Ultrasound used to visualize needle placement: Yes Ultrasound used to observe medication spread: Yes Injectate: 0.5% Ropivacaine (see comment for volume) ((Ropi 0.5% 7.5cc + NACL PF 2.5cc) each nerve. Medial Ulnar Radial MSKCut) Blood Aspirated: No Pain Paresthesia on Injection Noted: No Resistance on Injection: Normal Image Stored and Saved: Yes Events: Uneventful and Well Tolerated
[2021-02-03] MEDS ORDERED: LACTATED RINGERS 1,000 ML IV ONE (11:03)
[2021-02-03 11:16] VITALS: TEMP 97
[2021-02-03 13:02] VITALS: BP 121/78; PULSE 78; RESP 16
--- NOTE | 2021-02-03 14:11 | P.OP ---
Date of Procedure: 02/03/21 Preoperative Diagnosis: Right Intra-articular distal radius fracture, 3 parts. Postoperative Diagnosis: Right intra-articular distal radius, 3 parts. Procedure(s) Performed: 1.) Open reduction internal fixation of right intra-articular distal radius fracture, 3 parts. Implants: Biomet DVR-Cross Lock Distal Radius Volar Locking Plate Anesthesia: regional Surgeon: Damian Reis Estimated Blood Loss (ml): 10 Pathology: none sent Condition: stable Disposition: PACU Description of Procedure: This is a 40 year old male who sustained a displaced intra-articular distal radius fracture and presents today for open reduction internal fixation of their right distal radius fracture . Risks and benefits of surgery were discussed with the patient including bleeding, damage to surrounding tissue, infection, irritable hardware, need for further surgery, as well as risks of anesthesia including pulmonary embolism and even and the patient wished to proceed with surgical intervention. The patients was seen in the pre-operative area by myself. Consent and H&P were completed and updated. The correct extremity was marked in the pre-operative area by myself and all other questions were answered. The patient received a preoperative regional nerve block to the operative extremity by the department of anesthesia. Operative Narrative: The patient was brought to the operating room by the department of anesthesia. They remained on the portable stretcher and a rolling hand table was brought to the side of the operative extremity. Pre-operative time out was performed indicating the correct patient, procedure and laterality. All in the room agreed. Pre-operative antibiotics were given prior to skin incision. The patient was then drifted off to sleep by the department of anesthesia. A nonsterile tourniquet was then applied to the operative extremity and the right upper extremity was then prepped and draped in normal sterile fashion. The operative extremity was the exsanguinated with an esmarch bandage and the tourniquet was inflated to 250mmHg. A longitudinal incision centered over the FCR tendon was made with a 15-blade scalpel. Blunt dissection was taken down to the FCR tendon sheath using Bovie cautery for meticulous hemostasis. The FCR sheath was opened with tenotomy scissors. The floor of the FCR sheath was then incised with a 15-blade scalpel and the FPL tendon and muscle belly was swept bluntly in an ulnar direction to reveal the pronator quadratus. Pronator quadratus was sharply incised with a 15-blade scalpel along the radial border of the distal radius, coming across transversely parallel to the joint at the level of the watershed line, radial artery was identified and protected. Periosteal elevator was then used to elevate the pronator quadratus off the distal radius from a radial to ulnar fashion. A Alpine elevator was used to lever the distal piece back into place and free up the fractured fragments. A standard width Huber/biomet crosslock DVR plate was chosen to fit the patients anatomy best. This was placed on the distal radius under direct visualization and the K- wire was placed in the shaft k-wire hole. The fracture was then reduced to the plate distally and a k-wire was placed in the ulnar most k-wire hole in the proximal row. Fluoroscopy was then utilized to confirm correct placement of plate in the radial/ulnar plane and distal k-wire placement was confirmed to be proximal to the subchondral bone on 20 degree elevated lateral view confirming extra-articular screw placement. Muslim of radial height, inclination and volar tilt was achieved. The oblong hole was drilled and filled with a cortical screw. The proximal row and radial styloid screw hole was then drilled and filled from ulnar to radial with locking screws. Distal row was then drilled and filled with locking smooth pegs. Attention was then brought to the proximal shaft screws. Proximal crosslocking shaft screws were drilled with non-locking screws. The wrist joint was then ranged and full smooth flexion/extension with no crepitus appreciated. Final imaging was taken confirming extra-articular placement of distal screws at DRUJ and radiocarpal joint. The wound was then irrigated. Subcutaneous closure was performed with 3-0 vicryl followed by skin closure with 4-0 nylon suture. Sterile dressing consisting of adaptic,, 4x4s, and a volar plaster splint was applied. Tourniquet was let down and the hand had immediate perfusion. The patient was then woken by the department of anesthesia and transferred to PACU in stable condition. The patient was then woken by the department of anesthesia and transferred to PACU in stable condition. Damian Reis D.O. Orthopedic Hand/Upper Extremity Surgeon
== END 2021-02-03 13:28 | disposition home or self-care (01) ==
LOC: OR 08:30
PROVIDERS: ATTEND Orthopaedic Surgery Hand Surgery
DX: S52.571A Other intraarticular fracture of lower end of right radius, initial encounter for closed fracture (principal); F17.200 Nicotine dependence, unspecified, uncomplicated; F12.90 Cannabis use, unspecified, uncomplicated; K21.9 Gastro-esophageal reflux disease without esophagitis
CPT/HCPCS: 25609; 64415; 76942; 80053; 85025; C1713; J2250; J1100; J2405; J0690; J2001; J3010; J2795; J2370; J2704

== ENCOUNTER 2022-02-17 21:38 | Emergency (ER) | payer OTHER ==
[2022-02-17 22:01] VITALS: TEMP 98.6
--- NOTE | 2022-02-18 00:35 | ED ---
General Adult HPI - General Chief complaint: Skin/Abscess/Foreign Body Stated complaint: Swelling on rectum Time Seen by Provider: 02/18/22 00:19 Source: patient, family, RN notes reviewed, old records reviewed Mode of arrival: ambulatory - History of Present Illness Initial comments: Patient presents with painful lump to rectum that he noticed today. Tender to touch. Denies any bleeding or drainage. No previous history of hemorrhoids. -: days(s) (1) Location: buttocks (rectal) Severity scale (1-10): 6 Quality: constant Consistency: constant Associated Symptoms: denies other symptoms Treatments Prior to Arrival: none - Related Data Previous Rx's Medication Instructions Recorded Acetaminophen-Codeine 300-30mg 1 tab PO Q6H PRN #12 tablet 01/27/21 [Tylenol #3] Ibuprofen [Motrin] 600 mg PO Q8HR PRN #30 tab 01/27/21 Lidocaine 5% Patch [Lidoderm] 1 patch TOPICAL DAILY #30 patch 01/28/21 HYDROcodone/APAP 5-325MG [[place] 1 tab PO Q6HR PRN 3 Days #12 tab 02/03/21 5-325] polyethylene glycoL 3350 [Miralax] 17 gm PO DAILY 30 Days #30 packet 02/18/22 Allergies Allergy/AdvReac Type Severity Reaction Status Date / Time No Known Allergies Allergy Verified 02/17/22 22:01 Review of Systems ROS Statement: Those systems with pertinent positive or pertinent negative responses have been documented in the HPI. ROS Other: All systems not noted in ROS Statement are negative. Past Medical History Past Medical History: No Reported History Additional Past Medical History / Comment(s): Chronic pancreatitis X10 yrs. History of Any Multi-Drug Resistant Organisms: None Reported Past Surgical History: Orthopedic Surgery Additional Past Surgical History / Comment(s): Left wrist surgery. Past Anesthesia/Blood Transfusion Reactions: No Reported Reaction, Motion Sickness Past Psychological History: No Psychological Hx Reported Smoking Status: Current every day smoker Past Alcohol Use History: None Reported Past Drug Use History: Marijuana - Past Family History Mother History Unknown: Yes Family Medical History: No Reported History Father History Unknown: Yes Family Medical History: No Reported History General Exam Limitations: no limitations General appearance: alert, in no apparent distress Eye exam: Absent: scleral icterus, conjunctival injection, periorbital swelling Neck exam: Absent: meningismus Respiratory exam: Absent: respiratory distress, accessory muscle use Cardiovascular Exam: Present: regular rate GI/Abdominal exam: Present: soft. Absent: distended, tenderness, rigid Rectal exam: Present: hemorrhoids (Approximately 2 cm hemorrhoid, nonthrombosed) Extremities exam: Present: normal capillary refill. Absent: pedal edema Neurological exam: Present: alert, oriented X3 Psychiatric exam: Present: normal affect, normal mood Skin exam: Present: warm, dry, normal color. Absent: cyanosis, diaphoretic Course Vital Signs 02/17/22 02/18/22 21:58 01:03 Temperature 98.6 F Pulse Rate 83 78 Respiratory 18 16 Rate Blood Pressure 134/88 132/76 O2 Sat by Pulse 97 98 Oximetry Medical Decision Making - Medical Decision Making External hemorrhoid noted, nonthrombosed. No bleeding, erythema or purulent drainage. Patient denies fevers. He was directed to use [id number] hemorrhoid creams and Sitz baths for pain relief. Return to the emergency room with any new or concerning symptoms. Dr. Rivera at bedside to examine patient and is agreeable to this plan of care. Disposition Clinical Impression: Hemorrhoid Disposition: HOME SELF-CARE Condition: Good Instructions (If sedation given, give patient instructions): Hemorrhoids (ED), Sitz Bath (DC) Additional Instructions: Use sitz baths and topical hemorrhoid creams [id number]. Increase your fluid intake. MiraLAX daily to avoid constipation and straining. Follow-up with the primary care doctor for continuation of care. Return to the emergency room with any new or concerning symptoms. Prescriptions: polyethylene glycoL 3350 [Miralax] 17 gm PO DAILY 30 Days #30 packet Is patient prescribed a controlled substance at d/c from ED?: No Referrals: Suman Buchanan MD [REFERRING] - 1-2 days Time of Disposition: 00:30
[2022-02-18 01:04] VITALS: BP 132/76; PULSE 78; RESP 16
== END 2022-02-18 01:03 | disposition home or self-care (01) ==
LOC: EC 21:38
DX: K64.4 Residual hemorrhoidal skin tags (principal); F17.200 Nicotine dependence, unspecified, uncomplicated; F12.90 Cannabis use, unspecified, uncomplicated
CPT/HCPCS: 99283

== ENCOUNTER 2024-10-29 19:00 | Emergency (ER) | payer OTHER ==
--- NOTE | 2024-10-29 19:19 | ED ---
Abdominal Pain HPI - General Chief Complaint: Abdominal Pain Stated Complaint: Abd pain Time Seen by Provider: 10/29/24 19:01 Source: patient, RN notes reviewed Mode of arrival: EMS Limitations: no limitations - History of Present Illness Initial Comments: This is a 44-year-old male who presents to the emergency department for abdominal pain. States that it started about 45 minutes prior to arrival. Pain is in the left mid to upper abdomen. He had some nausea but no vomiting. Also reports diarrhea. He has a history of pancreatitis and bowel obstructions many years ago, but is unsure if it feels similar or not. He was given Zofran by EMS en route with some relief in symptoms. MD Complaint: abdominal pain - Related Data Previous Rx's Medication Instructions Recorded Acetaminophen-Codeine 300-30mg 1 tab PO Q6H PRN #12 tablet 01/27/21 [Tylenol #3] Ibuprofen [Motrin] 600 mg PO Q8HR PRN #30 tab 01/27/21 Lidocaine 5% Patch [Lidoderm] 1 patch TOPICAL DAILY #30 patch 01/28/21 HYDROcodone/APAP 5-325MG [[place] 1 tab PO Q6HR PRN 3 Days #12 tab 02/03/21 5-325] polyethylene glycoL 3350 [Miralax] 17 gm PO DAILY 30 Days #30 packet 02/18/22 Dicyclomine [Bentyl] 20 mg PO QID PRN #30 tablet 10/29/24 Ondansetron Odt [Zofran Odt] 4 mg PO Q8HR PRN #20 tab 10/29/24 Allergies Allergy/AdvReac Type Severity Reaction Status Date / Time No Known Allergies Allergy Verified 10/29/24 19:06 Review of Systems ROS Statement: Those systems with pertinent positive or pertinent negative responses have been documented in the HPI. ROS Other: All systems not noted in ROS Statement are negative. Past Medical History Past Medical History: No Reported History Additional Past Medical History / Comment(s): Chronic pancreatitis X10 yrs. History of Any Multi-Drug Resistant Organisms: None Reported Past Surgical History: Orthopedic Surgery Additional Past Surgical History / Comment(s): Left wrist surgery. Past Anesthesia/Blood Transfusion Reactions: No Reported Reaction, Motion Sickness Past Psychological History: No Psychological Hx Reported Smoking Status: Current every day smoker Past Alcohol Use History: None Reported Past Drug Use History: Marijuana - Past Family History Mother History Unknown: Yes Family Medical History: No Reported History Father History Unknown: Yes Family Medical History: No Reported History General Exam Limitations: no limitations General appearance: alert, in no apparent distress Head exam: Present: atraumatic, normocephalic, normal inspection Respiratory exam: Present: normal lung sounds bilaterally. Absent: respiratory distress, wheezes, rales, rhonchi, stridor Cardiovascular Exam: Present: regular rate, normal rhythm GI/Abdominal exam: Present: soft, tenderness (LUQ). Absent: distended Neurological exam: Present: alert, oriented X3, CN II-XII intact Psychiatric exam: Present: normal affect, normal mood Skin exam: Present: warm, dry, intact, normal color. Absent: rash Course Vital Signs 10/29/24 10/29/24 10/29/24 19:02 21:28 22:00 Temperature 98.4 F 98.1 F Pulse Rate 57 L 48 L Respiratory 19 17 Rate Blood Pressure 129/91 118/87 O2 Sat by Pulse 100 99 Oximetry Medical Decision Making - Medical Decision Making This is a 44 year old male who presents to the emergency department for abdominal pain. Was pt. sent in by a medical professional or institution? @ -No Did you speak to anyone other than the patient for history? @ -No Did you review nursing and triage notes? @ -Yes, and I agree, it is accurate with regards to the patient's symptoms. Were old charts reviewed? @ -No Differential Diagnosis? @ -Differential Abdominal Pain Men: Appendicitis, cholecystitis, diverticulosis, ischemic bowel, pancreatitis, hepatitis, UTI, gastroenteritis, AAA, incarcerated hernia, bowel obstruction, constipation, inflammatory bowel, hepatitis, peptic ulcer disease, splenic infarction, perforated viscus, testicular torsion, this is not meant to be an all-inclusive list EKG interpreted by me (3pts min.)? @ -EKG interpreted by me demonstrating the following: Sinus bradycardia. Ventricular rate 55 bpm, WA interval 136 ms, QRS duration 98 ms, QTc 404 ms. X-rays interpreted by me (1pt min.)? @ -Not obtained CT interpreted by me (1pt min.)? @ -CT scan of the abdomen and pelvis obtained. My interpretation identifies no bowel wall thickening or free air. U/S interpreted by me (1pt. min.)? @ -Not obtained What testing was considered but not performed? (CT, X-rays, U/S, labs)? Why? @ -None What meds were considered but not given? Why? @ -None Did you discuss the management of the patient with other professionals? @ -No Did you reconcile home meds? @ -No Was smoking cessation discussed for >3mins.? @ -I discussed smoking cessation for greater than 3 minutes. The risk of smoking were discussed with the patient including but not limited to risks of cancer, stroke, coronary artery disease and COPD. Also discussed with patient were multiple methods of quitting smoking. Lastly we discussed the financial cost of smoking. Was critical care preformed (if so, how long)? @ -No Were there social determinants of health that impacted care today? How? (Homelessness, low income, unemployed, alcoholism, drug addiction, transportation, low edu. Level, literacy, decrease access to med. care, long-term, rehab)? @ -No Was there de-escalation of care discussed even if they declined? (Discuss DNR or withdrawal of care, Hospice)? @ -No What co-morbidities impacted this encounter? (DM, HTN, Smoking, COPD, CAD, Cancer, CVA, Hep., AIDS, mental health diagnosis, sleep apnea, morbid obesity)? @ -Smoking Was patient admitted / discharged? @ -Discharged. Lab work unremarkable. Urinalysis negative for signs of infection. CT scan reveals no acute process to account for the patient's symptoms. His symptoms were controlled in the emergency department and he was tolerating oral intake. Bentyl and Zofran prescribed for further management. Advised he otherwise follow-up with his PCP for reevaluation. Patient discharged home in stable condition. Case discussed with ED attending Dr. Abdullahi. Return precautions reviewed in depth, the patient is instructed to return to the emergency department with any new, worsening, or concerning symptoms. Patient verbalized understanding. Undiagnosed new problem with uncertain prognosis? @ -None Drug Therapy requiring intensive monitoring for toxicity (Heparin, Nitro, Insulin, Cardizem)? @ -None Were any procedures done? @ -None Diagnosis/symptom? @ -Abdominal pain, nausea and vomiting Acute, or Chronic, or Acute on Chronic? @ -Acute Uncomplicated (without systemic symptoms) or Complicated (systemic symptoms)? @ -Uncomplicated Side effects of treatment? @ -None Exacerbation, Progression, or Severe Exacerbation] @ -Not applicable Poses a threat to life or bodily function? @ -No - Lab Data Result diagrams: 10/29/24 19:11 10/29/24 19:11 Lab Results 10/29/24 10/29/24 10/29/24 Range/Units 19:11 19:11 19:11 WBC 7.08 (4.50-10.00) 10*3/uL RBC 4.99 (4.40-5.60) 10*6/uL Hgb 14.5 (13.0-17.0) g/dL Hct 41.8 (39.6-50.0) % MCV 83.8 (80.0-97.0) fL MCH 29.1 (27.0-32.0) pg MCHC 34.7 (32.0-37.0) g/dL Plt Count 347 (140-440) 10*3/uL MPV 8.7 L (9.5-12.2) fL Immature Gran % (Auto) 0.3 % Neutrophils % 65.6 % Lymphocytes % 27.8 % Monocytes % 4.7 % Eosinophils % 0.6 % Basophils % 1.0 % Immature Gran # 0.02 (0.00-0.04) 10*3/uL Neutrophils # 4.65 (1.80-7.70) 10*3/uL Lymphocytes # 1.97 (0.90-5.00) 10*3/uL Monocytes # 0.33 (0.20-1.00) 10*3/uL Eosinophils # 0.04 (0.04-0.35) 10*3/uL Basophils # 0.07 (0.00-0.10) 10*3/uL Sodium 139 (137-145) mmol/L Potassium 4.1 (3.5-5.1) mmol/L Chloride 104 (98-107) mmol/L Carbon Dioxide 23 (22-30) mmol/L Anion Gap 12 mmol/L BUN 11 (9-20) mg/dL Creatinine 1.08 (0.66-1.25) mg/dL Est GFR (CKD-EPI)AfAm >90 (>60 ml/min/1.73 sqM) Est GFR (CKD-EPI)NonAf 82 (>60 ml/min/1.73 sqM) Glucose 146 H (74-99) mg/dL Plasma Lactic Acid [place] 1.9 (0.7-2.0) mmol/L Calcium 9.3 (8.4-10.2) mg/dL Total Bilirubin 0.6 (0.2-1.3) mg/dL AST 23 (17-59) U/L ALT 19 (4-49) U/L Alkaline Phosphatase 35 L (38-126) U/L Total Protein 6.3 (6.3-8.2) g/dL Albumin 4.0 (3.5-5.0) g/dL Amylase 103 (30-110) U/L Lipase 273 (23-300) U/L Urine Color Urine Appearance (Clear) Urine pH (5.0-8.0) Ur Specific [place] (1.001-1.035) Urine Protein (Negative) Urine Glucose (UA) (Negative) Urine Ketones (Negative) Urine Blood (Negative) Urine Nitrite (Negative) Urine Bilirubin (Negative) Urine Urobilinogen (<2.0) mg/dL Ur Leukocyte Esterase (Negative) 10/29/24 Range/Units 20:50 WBC (4.50-10.00) 10*3/uL RBC (4.40-5.60) 10*6/uL Hgb (13.0-17.0) g/dL Hct (39.6-50.0) % MCV (80.0-97.0) fL MCH (27.0-32.0) pg MCHC (32.0-37.0) g/dL Plt Count (140-440) 10*3/uL MPV (9.5-12.2) fL Immature Gran % (Auto) % Neutrophils % % Lymphocytes % % Monocytes % % Eosinophils % % Basophils % % Immature Gran # (0.00-0.04) 10*3/uL Neutrophils # (1.80-7.70) 10*3/uL Lymphocytes # (0.90-5.00) 10*3/uL Monocytes # (0.20-1.00) 10*3/uL Eosinophils # (0.04-0.35) 10*3/uL Basophils # (0.00-0.10) 10*3/uL Sodium (137-145) mmol/L Potassium (3.5-5.1) mmol/L Chloride (98-107) mmol/L Carbon Dioxide (22-30) mmol/L Anion Gap mmol/L BUN (9-20) mg/dL Creatinine (0.66-1.25) mg/dL Est GFR (CKD-EPI)AfAm (>60 ml/min/1.73 sqM) Est GFR (CKD-EPI)NonAf (>60 ml/min/1.73 sqM) Glucose (74-99) mg/dL Plasma Lactic Acid [place] (0.7-2.0) mmol/L Calcium (8.4-10.2) mg/dL Total Bilirubin (0.2-1.3) mg/dL AST (17-59) U/L ALT (4-49) U/L Alkaline Phosphatase (38-126) U/L Total Protein (6.3-8.2) g/dL Albumin (3.5-5.0) g/dL Amylase (30-110) U/L Lipase (23-300) U/L Urine Color Colorless Urine Appearance Clear (Clear) Urine pH 6.5 (5.0-8.0) Ur Specific [place] 1.030 (1.001-1.035) Urine Protein Negative (Negative) Urine Glucose (UA) Negative (Negative) Urine Ketones Negative (Negative) Urine Blood Negative (Negative) Urine Nitrite Negative (Negative) Urine Bilirubin Negative (Negative) Urine Urobilinogen <2.0 (<2.0) mg/dL Ur Leukocyte Esterase Negative (Negative) - Radiology Data Radiology results: report reviewed, image reviewed Disposition Clinical Impression: Abdominal pain, Nausea and vomiting, Nicotine dependence Disposition: HOME SELF-CARE Instructions (If sedation given, give patient instructions): Abdominal Pain (ED) Additional Instructions: Return to the emergency department with any new, worsening, or concerning symptoms. Take the Zofran up to every 8 hours as needed for nausea and vomiting. You can take the Bentyl up to 4 times daily for abdominal discomfort. Follow up with your primary care provider in 1-2 days. Prescriptions: Dicyclomine [Bentyl] 20 mg PO QID PRN #30 tablet PRN Reason: Gi Upset Ondansetron Odt [Zofran Odt] 4 mg PO Q8HR PRN #20 tab PRN Reason: Nausea And Vomiting Is patient prescribed a controlled substance at d/c from ED?: No Referrals: None,Stated [Primary Care Provider] - 1-2 days Time of Disposition: 21:52
[2024-10-29 19:21] LABS: Basophils # (A) 0.07 10*3/uL (0.00-0.10); Basophils % (A) 1.0 %; Eosinophils # (A) 0.04 10*3/uL (0.04-0.35); Eosinophils % (A) 0.6 %; HCT 41.8 % (39.6-50.0); HGB 14.5 g/dL (13.0-17.0); Lymphocytes # (A) 1.97 10*3/uL (0.90-5.00); Lymphocytes % (A) 27.8 %; MCH 29.1 pg (27.0-32.0); MCHC 34.7 g/dL (32.0-37.0); MCV 83.8 fL (80.0-97.0); Monocytes # (A) 0.33 10*3/uL (0.20-1.00); Monocytes % (A) 4.7 %; Neutrophils # (A) 4.65 10*3/uL (1.80-7.70); Neutrophils % (A) 65.6 %; Platelet Count 347 10*3/uL (140-440); RBC 4.99 10*6/uL (4.40-5.60); RDW 12.3 % (11.5-14.5); WBC 7.08 10*3/uL (4.50-10.00)
[2024-10-29] MEDS: SODIUM CHLORIDE 0.9% 1,000 ML IV ONE (19:30)
[2024-10-29] MEDS: PANTOPRAZOLE 40 MG/10 ML VIAL IVP STA (19:30)
[2024-10-29] MEDS: KETOROLAC 15 MG/ML 1 ML VIAL IVP STA (19:33)
[2024-10-29] MEDS: ACETAMINOPHEN IV (For NPO) 1,000 MG in EMPTY BAG 1 BAG IVPB STA (19:33)
[2024-10-29 19:46] LABS: ALT 19 U/L (4-49); AST 23 U/L (17-59); African American GFR (CKD) >90 (>60 ml/min/1.73 sqM); Albumin 4.0 g/dL (3.5-5.0); Alkaline Phosphatase 35 U/L (38-126); Amylase 103 U/L (30-110); Anion Gap 12 mmol/L; Blood Urea Nitrogen 11 mg/dL (9-20); Calcium 9.3 mg/dL (8.4-10.2); Carbon Dioxide 23 mmol/L (22-30); Chloride 104 mmol/L (98-107); Glucose 146 mg/dL (74-99); Lipase 273 U/L (23-300); Non-African American GFR(CKD) 82 (>60 ml/min/1.73 sqM); Potassium 4.1 mmol/L (3.5-5.1); Sodium 139 mmol/L (137-145); Total Protein 6.3 g/dL (6.3-8.2)
--- NOTE | 2024-10-29 20:25 | CT ---
EXAMINATION TYPE: CT abdomen pelvis w con CT DLP: 663.4 mGycm, Automated exposure control for dose reduction was used. DATE OF EXAM: 10/29/2024 8:15 PM COMPARISON: CT abdomen pelvis 09/09/2023 CLINICAL INDICATION:Male, 44 years old with history of LUQ pain; abd pain/hx pancreatitis TECHNIQUE: Standard CT of the abdomen and pelvis following the administration of 100 cc of Isovue 3 00 IV contrast material. Coronal and sagittal reformats were performed. FINDINGS: LOWER CHEST: Minimal posterior dependent subsegmental atelectasis is noted. ABDOMEN LIVER: Stable left hepatic lobe cysts measuring up to 2.5 cm. Probable vascular shunt or flash fillin g hemangioma involving the left lateral hepatic lobe. Periportal edema identified. GALLBLADDER AND BILE DUCTS: Unremarkable. PANCREAS: Unremarkable. No ductal dilatation. No parenchymal calcifications. Pancreas enhances homoge neously. No focal lesion. No surrounding inflammatory changes or fluid collections. SPLEEN: Unremarkable. ADRENAL GLANDS: Unremarkable. KIDNEYS AND URETERS: No evidence of hydronephrosis. Nonobstructing right renal 1 cm calculus. Nonobst ructing left renal 0.7 cm calculus. The kidneys enhance symmetrically. Left renal mid kidney stable 2 .3 cm simple cyst. No follow-up recommended. Contrast is demonstrated within both collecting systems and proximal ureters and the delayed phase. PELVIS BLADDER: Incompletely distended but grossly unremarkable. REPRODUCTIVE: Unremarkable. ABDOMEN & PELVIS STOMACH AND BOWEL: Stomach and duodenum are unremarkable. No focal bowel wall thickening or surroundi ng inflammatory changes. The appendix is within normal limits. Note diverticulosis. No evidence of paula wel obstruction. PERITONEUM: No evidence of pneumoperitoneum or free fluid. VASCULATURE: No evidence of aortic aneurysm. MUSCULOSKELETAL: No acute osseous abnormalities LYMPH NODES: No evidence for lymphadenopathy. SOFT TISSUE/ABDOMINAL WALL: Unremarkable IMPRESSION: 1. No CT evidence for acute abdominal/pelvic process. 2. Nonobstructing bilateral renal calculi. 3. Nonspecific periportal edema which can be seen with aggressive fluid hydration. [facility], , 10/29/2024 8:22 PM
[2024-10-29 21:10] LABS: Bilirubin,Urine Negative (Negative); Blood,Urine Negative (Negative); Color,Urine Colorless; Glucose,Urine (UA) Negative (Negative); Ketones,Urine Negative (Negative); Leukocyte Esterase,Urine Negative (Negative); Nitrite,Urine Negative (Negative); PH, Urine 6.5 (5.0-8.0); Protein,Urine Negative (Negative); Specific Gravity,Urine 1.030 (1.001-1.035); Urobilinogen,Urine <2.0 mg/dL (<2.0)
[2024-10-29] MEDS: FAMOTIDINE 20 MG/2 ML VIAL IV STA (21:20)
[2024-10-29] MEDS: MAG HYDROX/AL HYDROX/SIMETH 30 ML CUP PO STA (21:20)
[2024-10-29] MEDS: DICYCLOMINE 10 MG/ML 2 ML AMP IM STA (21:21)
[2024-10-29] MEDS: ONDANSETRON 4 MG ODT STARTER PACK 2 TAB BTL PO STA (22:00)
[2024-10-29 22:08] VITALS: BP 118/87; PULSE 48; RESP 17; TEMP 98.1
== END 2024-10-29 22:08 | disposition home or self-care (01) ==
LOC: EC 19:00
DX: R10.12 Left upper quadrant pain (principal); F17.200 Nicotine dependence, unspecified, uncomplicated; R11.2 Nausea with vomiting, unspecified
CPT/HCPCS: 36415; 93005; 80053; 82150; 83605; 83690; 85025; 81003; 74177; 99285; 96374; 96375; 96372; 96361; J0500; J0131; J1885; S0119; Q9967; J2470; J1308